=== PATIENT | male | born 1950 | race Caucasian/White ===

== ENCOUNTER 2017-12-14 22:37 | Emergency (ER) | payer OTHER ==
[~2017-12-14] VITALS: Ht 170.2 cm; Wt 68.0 kg
[2017-12-14] MEDS ORDERED: SIMVASTATIN1 GM (22:49)
[2017-12-14] MEDS ORDERED: GLIPIZIDE ER2.5 MG (22:50)
[2017-12-14] MEDS ORDERED: TOPROL XL25 M1 (22:50)
[2017-12-14] MEDS ORDERED: RANITIDINE HCL25 GM (22:50)
[2017-12-15] MEDS ORDERED: MECLIZINE HCL25 MG PO (03:26)
== END 2017-12-15 04:04 ==
LOC: ER 22:37
DX: H92.01 Otalgia, right ear (principal); R42 Dizziness and giddiness

== ENCOUNTER 2018-02-21 19:03 | Emergency (ER) | payer OTHER ==
[~2018-02-21] VITALS: Ht 170.2 cm; Wt 72.6 kg
[~2018-02-21 19:03] MED LIST: GLIPIZIDE ER2.5 MG; MECLIZINE HCL25 MG PO; RANITIDINE HCL25 GM; SIMVASTATIN1 GM; TOPROL XL25 M1
== END 2018-02-21 22:04 | disposition home or self-care (01) ==
LOC: ER 19:03
DX: R42 Dizziness and giddiness (principal); R05 Cough

== ENCOUNTER 2018-03-08 11:56 | Emergency (ER) | payer OTHER ==
[~2018-03-08] VITALS: Ht 170.2 cm; Wt 70.8 kg
== END 2018-03-08 18:53 | disposition home or self-care (01) ==
LOC: ER 11:56
DX: R42 Dizziness and giddiness (principal); R51 Headache; G25.2 Other specified forms of tremor; I16.1 Hypertensive emergency; I10 Essential (primary) hypertension

== ENCOUNTER 2018-09-05 18:54 | Emergency (ER) | payer OTHER ==
[~2018-09-05] VITALS: Ht 170.2 cm; Wt 79.4 kg
[2018-09-05] MEDS ORDERED: SIMVASTATIN5 MG (19:00)
== END 2018-09-05 22:37 | disposition home or self-care (01) ==
LOC: ER 18:54
DX: K59.09 Other constipation (principal)

== ENCOUNTER 2018-10-15 11:37 | Emergency (ER) | payer OTHER ==
[~2018-10-15] VITALS: Ht 170.2 cm; Wt 77.1 kg
[~2018-10-15 11:37] MED LIST changes: +SIMVASTATIN5 MG
== END 2018-10-15 17:38 | disposition home or self-care (01) ==
LOC: ER 11:37 → CPU-OBS 11:46 → ER 17:38
DX: R07.89 Other chest pain (principal)

== ENCOUNTER 2018-11-27 12:44 | Emergency (ER) | payer OTHER ==
[~2018-11-27] VITALS: Ht 170.2 cm; Wt 78.5 kg
== END 2018-11-27 17:02 | disposition home or self-care (01) ==
LOC: ER 12:44
DX: R10.31 Right lower quadrant pain (principal); R10.32 Left lower quadrant pain; I16.0 Hypertensive urgency; I10 Essential (primary) hypertension